=== PATIENT | female | born 2000 | race Two or more races ===

== ENCOUNTER 2022-09-20 17:50 | Emergency (ER) | payer OTHER ==
[~2022-09-20] VITALS: Ht 152.4 cm; Wt 45.4 kg
== END 2022-09-20 21:18 | disposition home or self-care (01) ==
LOC: ER 17:50
DX: M94.0 Chondrocostal junction syndrome [Tietze] (principal); G44.89 Other headache syndrome; Z91.013 Allergy to seafood